=== PATIENT | male | born 1995 | race Caucasian/White ===

== ENCOUNTER 2017-03-27 21:25 | Emergency (ER) | payer BC, OTHER ==
[2017-03-27 21:46] VITALS: BP 135/77
[2017-03-27] MEDS ORDERED: Lidocaine 1% with EPINEPHrine 1:100,000 20 ML MDV INJECT ONE (21:49)
--- NOTE | 2017-03-27 22:43 | EDM.PDOC ---
ED HPI GENERAL MEDICAL PROBLEM - General Chief Complaint: Laceration Stated Complaint: INJURY TO LEFT LEG Time Seen by Provider: 03/27/17 21:48 Source of Information: Reports: Patient History Limitations: Reports: No Limitations - History of Present Illness INITIAL COMMENTS - FREE TEXT/NARRATIVE: Patient is a 21-year-old male who presents the ED complaining of a laceration to the left anterior tibia with a piece of wood stuck in it. Patient was golfing today and was walking through the trees and accidentally impaled himself with a tree branch. They did remove a piece of wood but were unable to get the remaining piece deep underneath the skin. Minimal bleeding and pain present. He offers no additional complaints. Denies numbness/tingling, swelling, increased redness, purulent drainage. Left Knee Pain Score (Numeric/FACES): 2 - Related Data Allergies Allergy/AdvReac Type Severity Reaction Status Date / Time No Known Allergies Allergy Verified 03/27/17 21:46 Home Meds: Home Meds Cephalexin [Keflex] 500 mg PO Q6HR #28 cap 03/27/17 [Rx] Past Medical History - Past Health History Medical/Surgical History: Denies Medical/Surgical History Social & Family History - Tobacco Use Smoking Status *Q: Never Smoker Second Hand Smoke Exposure: No - Alcohol Use Days Per Week of Alcohol Use: 0 - Recreational Drug Use Recreational Drug Use: No ED ROS GENERAL - Review of Systems Review Of Systems: ROS reveals no pertinent complaints other than HPI. ED EXAM, SKIN/RASH Exam: See Below Exam Limited By: No Limitations General Appearance: Alert, WD/WN, No Apparent Distress Ears: Hearing Grossly Normal Nose: Normal Inspection Throat/Mouth: Normal Voice, No Airway Compromise Neck: Normal Inspection Respiratory/Chest: No Respiratory Distress, No Accessory Muscle Use Cardiovascular: Normal Peripheral Pulses, Regular Rate, Rhythm Extremities: Other (Approximately 1.5-2 cm laceration to the anterior aspect of the tibia proximal to the knee with no bleeding and minimal pain present. With palpation he can feel a hard substance buried underneath the skin. Unable to visualize what it is. There is no increased redness, bruising, or purulent drainage present.) Neurological: Alert, Oriented, CN II-XII Intact, Normal Gait, No Motor/Sensory Deficits Psychiatric: Normal Affect, Normal Mood Skin: Warm, Dry, Normal Color ED SKIN PROCEDURES - Foreign Body Removal Consent Obtained:: Patient Performing Doctor:: Rory Villagomez Foreign Body Other Location Comment:: Piece of wood from a tree branch measuring approximately 1 inch in length. Multiple small splinters removed. No additional foreign bodies remain. Anesthesia Type: Local Complications:: No Course - Vital Signs Last Recorded V/S: Last Vital Signs Temp 98.2 F 03/27/17 21:34 Pulse 70 03/27/17 21:34 Resp 16 03/27/17 21:34 BP 135/77 03/27/17 21:34 Pulse Ox 98 03/27/17 21:34 - Orders/Labs/Meds Meds: Medications Discontinued Medications Generic Name Dose Route Start Last Admin Trade Name Freq PRN Reason Stop Dose Admin Cephalexin 500 mg 03/27/17 22:52 Keflex PO 03/27/17 22:53 ONETIME ONE Lidocaine/Epinephrine 20 ml 03/27/17 21:49 03/27/17 22:07 Xylocaine 1% With Epinephrine 1:100,000 INJECT 03/27/17 21:50 20 ml ONETIME ONE Administration - Re-Assessments/Exams Free Text/Narrative Re-Assessment/Exam: Removed fairly large piece of wood/splinter from the left anterior tibia proximal to the knee. This is done through a 2 cm laceration. No sutures will be utilized to close. Heel by secondary intentions. Site was irrigated out with chlorhexidine. Triple antibiotic and dressing applied. Tetanus status is up-to- date. Will discharge patient home with instructions as documented. Departure - Departure Time of Disposition: 22:40 Disposition: Home, Self-Care 01 Condition: Good Clinical Impression: Foreign body of left lower leg Qualifiers: Encounter type: initial encounter Qualified Code(s): S80.852A - Superficial foreign body, left lower leg, initial encounter Laceration of leg Qualifiers: Encounter type: initial encounter Laterality: left Qualified Code(s): S81.812A - Laceration without foreign body, left lower leg, initial encounter - Discharge Information Prescriptions: Cephalexin [Keflex] 500 mg PO Q6HR #28 cap Instructions: Puncture Wound, [id number], Laceration Care, Adult, Easy-to- Read Referrals: Bernie Calloway, EXHIB[employer] ELECTRICIAN [Primary Care Provider] - Forms: ED Department Discharge Additional Instructions: Cleanse site twice daily with soap and water, pat dry, reapply triple antibiotic ointment and dressing. Take ibuprofen and Tylenol in alternating fashion for pain. Take the full course of Keflex as prescribed. Return to the ED if you experience increased redness, increased swelling, purulent drainage, fever/chills. Laceration should heal in the next 7-10 days by secondary intentions. If you see additional splinters please remove. No soaking wound. Listen to what ever you mother tells you to do...
[2017-03-27] MEDS ORDERED: Cephalexin 500 MG Cap PO ONE (22:52)
== END 2017-03-27 23:23 | disposition home or self-care (01) ==
LOC: JD.ED 21:25
DX: S81.822A Laceration with foreign body, left lower leg, initial encounter (principal); W45.8XXA Other foreign body or object entering through skin, initial encounter
CPT/HCPCS: 10120; 99283; 99283-25

== ENCOUNTER 2017-08-26 13:49 | Emergency (ER) | payer BC ==
[2017-08-26] MEDS ORDERED: Sodium Chloride 0.9% 10 ML Syringe FLUSH PRN (14:24)
[2017-08-26] MEDS ORDERED: cefTRIAXone 2 GM in Sodium Chloride 0.9% 100 ML IV ONE (14:26)
--- NOTE | 2017-08-26 15:22 | CT ---
CT right ankle Technique: Multiple axial sections were obtained with reconstructed sagittal and coronal images. Findings: Diffuse skin thickening of subcutaneous edema is identified. No ankle fracture is identified. Ankle mortise is symmetric. Incidental bone island is identified within the calcaneus. Impression: 1. Diffuse subcutaneous soft tissue swelling and skin thickening. 2. No acute bony abnormality is seen. Diagnostic code #2
--- NOTE | 2017-08-26 15:44 | EDM.PDOC ---
ED HPI GENERAL MEDICAL PROBLEM - General Chief Complaint: Lower Extremity Injury/Pain Stated Complaint: RIGHT ANKLE INJURY Time Seen by Provider: 08/26/17 14:18 Source of Information: Reports: Patient, Family History Limitations: Reports: No Limitations - History of Present Illness INITIAL COMMENTS - FREE TEXT/NARRATIVE: The patient presents with right ankle pain, swelling and redness. He inverted his ankle while playing basketball on Tuesday. There was a white area to the lateral anterior ankle and that turned into a blister that popped and now he has redness and swelling and pain. He went to the urgent care clinic down in [place] and they did an x-ray and there was no fracture. He was given a walking boot and crutches. The pain was bad that night so he went to the ER in [place] and they reviewed the x-rays and they agreed there was no fracture. They gave him something more for pain. He has had moderate edema and swelling and the open sore has redness and some drainage. He denies fever or chills. He could not walk on his ankle initially and now it hurts to put any weight on it. Onset: Sudden Duration: Day(s): (5) Location: Reports: Lower Extremity, Right (ankle) Quality: Reports: Sharp Severity: Moderate Improves with: Reports: None Worsens with: Reports: None Context: Reports: Exercise (Playing basketball) Associated Symptoms: Reports: No Other Symptoms Right Ankle Pain Score (Numeric/FACES): 4 - Related Data Allergies Allergy/AdvReac Type Severity Reaction Status Date / Time No Known Allergies Allergy Verified 08/26/17 14:19 Home Meds: Home Meds Doxycycline [Vibramycin] 100 mg PO Q12HR #20 cap 08/26/17 [Rx] Past Medical History - Past Health History Medical/Surgical History: Denies Medical/Surgical History Social & Family History - Family History Family Medical History: Noncontributory - Tobacco Use Smoking Status *Q: Never Smoker Second Hand Smoke Exposure: No - Caffeine Use Caffeine Use: Reports: None - Alcohol Use Days Per Week of Alcohol Use: 0 - Recreational Drug Use Recreational Drug Use: No Review of Systems - Review of Systems Review Of Systems: See Below Constitutional: Reports: No Symptoms Eyes: Reports: No Symptoms Ears: Reports: No Symptoms Nose: Reports: No Symptoms Mouth/Throat: Reports: No Symptoms Respiratory: Reports: No Symptoms Cardiovascular: Reports: No Symptoms GI/Abdominal: Reports: No Symptoms Genitourinary: Reports: No Symptoms Musculoskeletal: Reports: Other (Right ankle, redness, and edema and an open sore with drainage and redness) ED EXAM, GENERAL - Physical Exam Exam: See Below Exam Limited By: No Limitations General Appearance: Alert, No Apparent Distress Ears: Normal External Exam Nose: Normal Inspection Head: Atraumatic, Normocephalic Neck: Normal Inspection Respiratory/Chest: No Respiratory Distress, Lungs Clear, Normal Breath Sounds Cardiovascular: Regular Rate, Rhythm, No Edema, No Murmur GI/Abdominal: Soft, Non-Tender, No Organomegaly, No Mass Back Exam: Normal Inspection Extremities: Other (Moderate edema and ecchymosis to the right ankle with a sore to the anterior lateral ankle. There is erythema surrounding the ankle. Pain upon palpation to the ankle. Good sensation and capillary refill distally. ) Course - Vital Signs Last Recorded V/S: Last Vital Signs Temp 98.7 F 08/26/17 14:14 Pulse 69 08/26/17 14:14 Resp 16 08/26/17 14:14 BP Pulse Ox 100 08/26/17 14:14 - Orders/Labs/Meds Orders: Active Orders 24 hr Category Date Time Status Peripheral IV Care [RC] . DIRECTED Care 08/26/17 14:24 Active Sodium Chloride 0.9% [Saline Flush] Med 08/26/17 14:24 Active 10 ml FLUSH ASDIRECTED PRN Peripheral IV Insertion Adult [OM.PC] Routine Oth 08/26/17 14:24 Ordered Medication Orders Sodium Chloride (Saline Flush) 10 ml FLUSH ASDIRECTED PRN PRN Reason: Keep Vein Open Last Admin: 08/26/17 14:57 Dose: 10 ml Labs: Laboratory Tests 08/26/17 08/26/17 Range/Units 14:45 14:45 WBC 6.73 (4.23-9.07) K/mm3 RBC 4.68 (4.63-6.08) M/mm3 Hgb 14.6 (13.7-17.5) gm/L Hct 40.2 (40.1-51.0) % MCV 85.9 (79.0-92.2) fl MCH 31.2 (25.7-32.2) pg MCHC 36.3 H (32.2-35.5) g/dl RDW Std Deviation 38.0 (35.1-43.9) fL Plt Count 233 (163-337) K/mm3 MPV 9.8 (9.4-12.3) fl Neut % (Auto) 74.6 H (34.0-67.9) % Lymph % (Auto) 16.3 L (21.8-53.1) % [place] % (Auto) 7.6 (5.3-12.2) % Eos % (Auto) 1.3 (0.8-7.0) Baso % (Auto) 0.1 (0.1-1.2) % Neut # (Auto) 5.01 (1.78-5.38) K/mm3 Lymph # (Auto) 1.10 L (1.32-3.57) K/mm3 [place] # (Auto) 0.51 (0.30-0.82) K/mm3 Eos # (Auto) 0.09 (0.04-0.54) K/mm3 Baso # (Auto) 0.01 (0.01-0.08) K/mm3 C-Reactive Protein 1.5 H* (<1.0) mg/dL Meds: Medications Generic Name Dose Route Start Last Admin Trade Name Freq PRN Reason Stop Dose Admin Sodium Chloride 10 ml 08/26/17 14:24 08/26/17 14:57 Saline Flush FLUSH 10 ml ASDIRECTED PRN Administration Keep Vein Open Discontinued Medications Generic Name Dose Route Start Last Admin Trade Name Freq PRN Reason Stop Dose Admin Ceftriaxone Sodium 2 gm/ 100 mls @ 200 mls/hr 08/26/17 14:26 08/26/17 14:55 Sodium Chloride IV 08/26/17 14:55 200 mls/hr ONETIME ONE Administration - Re-Assessments/Exams Free Text/Narrative Re-Assessment/Exam: 08/26/17 15:46 I ordered an IV saline lock, rocephin 2 grams IV, labs and a CT of his ankle. The CT showed diffuse subcutaneous soft tissue swelling and skin thickening. No acute bony abnormality is seen. His WBC was normal. His CRP was elevated to 1.5. It appears to be a bad sprain and cellulitis. I will get him on some doxycycline and have him see PT. Departure - Departure Time of Disposition: 15:50 Disposition: Home, Self-Care 01 Condition: Good Clinical Impression: Right ankle sprain Qualifiers: Encounter type: sequela Involved ligament of ankle: unspecified ligament Qualified Code(s): S93.401S - Sprain of unspecified ligament of right ankle, sequela Cellulitis Qualifiers: Site of cellulitis: extremity Site of cellulitis of extremity: lower extremity Laterality: right Qualified Code(s): L03.115 - Cellulitis of right lower limb - Discharge Information Prescriptions: Doxycycline [Vibramycin] 100 mg PO Q12HR #20 cap Referrals: Bernie Calloway, SEWING MACHINE TESTER [Primary Care Provider] - Additional Instructions: Soak your foot in warm soapy water 2 times per day and apply antiobiotic ointment after. Wear the walking boot and use the crutches. Follow up with PT. Please return if you are worse. - My Orders Last 24 Hours: My Active Orders 08/26/17 14:24 Peripheral IV Care [RC] . DIRECTED Sodium Chloride 0.9% [Saline Flush] 10 ml FLUSH ASDIRECTED PRN Peripheral IV Insertion Adult [OM.PC] Routine - Assessment/Plan Last 24 Hours: My Active Orders 08/26/17 14:24 Peripheral IV Care [RC] . DIRECTED Sodium Chloride 0.9% [Saline Flush] 10 ml FLUSH ASDIRECTED PRN Peripheral IV Insertion Adult [OM.PC] Routine
== END 2017-08-26 15:55 | disposition home or self-care (01) ==
LOC: JD.ED 13:49
DX: S93.401A Sprain of unspecified ligament of right ankle, initial encounter (principal); L03.115 Cellulitis of right lower limb; X50.0XXA Overexertion from strenuous movement or load, initial encounter; Y93.67 Activity, basketball
CPT/HCPCS: 36415; 73700; 85025; 86140; 96365; 99284; J0696; J7030; J7050; 99283